=== PATIENT | female | born 1975 | race Asian ===

== ENCOUNTER 2024-01-08 09:58 | Emergency (ER) | payer OTHER, SELFPAY ==
[2024-01-08 10:03] VITALS: BP 114/76
--- NOTE | 2024-01-08 10:22 | ED.GENMED ---
History of Present Illness
General
Chief Complaint: Back Pain
Time Seen by Provider: 01/08/24 10:22
History of Present Illness
History of Present Illness:
48-year-old female with no significant past medical problems presents to the emergency department for evaluation of right-sided low back pain that began after attempting to lift a heavy bag yesterday. Took 800 mg of ibuprofen without relief. Pain
does not radiate down the legs. Denies any loss of bladder or bowel function. No fevers or chills
Past History
Social History
Living: with family
Review of Systems
Review of Systems
Allergies reviewed?: Yes
All Other Systems: ROS reviewed and negative except as documented in HPI and ROS
Phy Exam
Physical Exam
Physical Exam:
GEN: Well appearing, NAD, WDWN
HEENT: Oral mucosa moist, no scleral icterus
Cardiac: Regular rate
Lung: No respiratory distress, no tachypnea
MSK: No gross deformity or injuries. No midline lumbar spine tenderness elicited, mild tenderness elicited to the PSIS as well as the right lumbar paraspinous muscles. Straight leg raise test is negative, normal right hip range of motion with no
elicited pain, right patellar reflex 2+
Skin: Good color, no pallor or jaundice, no rashes
Neuro: AO x3, moves all extremities freely
Psych: Calm, cooperative
Course
Orders/Labs/Results
Orders:
Orders
01/08/24 10:31
Ketorolac [Toradol] 30 mg IM NOW STA
Vital Signs
Initial and Last Documented VS:
Initial Vital Signs
Temp Pulse Resp BP Pulse Ox
98.7 F 93 18 114/76 99
01/08/24 10:03 01/08/24 10:03 01/08/24 10:03 01/08/24 10:03 01/08/24 10:03
Last Documented Vital Signs
Temp Pulse Resp BP Pulse Ox
98.7 F 93 18 114/76 99
01/08/24 10:03 01/08/24 10:03 01/08/24 10:03 01/08/24 10:03 01/08/24 10:03
MDM/Problems Addressed
MDM/Problems Addressed:
Findings consistent with lumbar muscle strain, no radiculopathy concerning for discogenic etiology. Discussed supportive care. Patient has upcoming flight to [place] thus will need adequate medications for travel purposes
*Critical Care Note
Total Time (30-74mins, 75-104mins- exclusive of procedures): Not Applicable
ED Attending Note
-
Portions of this chart may have been created with voice recognition software.� Occasional wrong word or��sound alike� substitutions may have occurred due to the inherent limitations of voice recognition software.
Discharge Plan
Departure
Patient Disposition: Home (Routine Discharge)
Date of Disposition: 01/08/24
Time of Disposition: 10:33
Patient with high blood pressure during this ER visit?: No
Discharge Problem:
Acute lumbar myofascial strain
Instructions: Low Back Pain (DC), Back Exercises
Prescriptions:
New
diclofenac sodium 75 mg tablet,delayed release (DR/EC)
75 mg PO BID Qty: 20 0RF
diazepam 5 mg tablet
5 mg PO TID PRN (Reason: muscle spasm) Qty: 15 0RF
diclofenac sodium 1 % gel
2 g topical QID Qty: 100 0RF
No Action
cefadroxil 500 mg capsule
500 mg PO BID Qty: 20 0RF
Interventions
Interventions:
*Risk Screen - Suicide Last Done: 01/08/24 10:05
*General Assessment Last Done: 01/08/24 10:05
*Neglect/Abuse Screening Last Done: 01/08/24 10:05
*Nursing Disposition Last Done: 01/08/24 11:00
ED-Musculoskeletal Assessment Last Done: 01/08/24 10:45
Discharge Date and Time
Discharge Date/Time: 01/08/24 11:00
Print Language: [id number]
[2024-01-08] MEDS: TORADOL 30 MG IM (10:56)
== END 2024-01-08 11:00 | disposition home or self-care (01) ==
LOC: EMR 09:58
PROVIDERS: EMERGENCY PHYSICIAN Student in an Organized Health Care Education/Training Program; FAMILY PHYSICIAN Internal Medicine
DX: S39.012A Strain of muscle, fascia and tendon of lower back, initial encounter (principal); X50.0XXA Overexertion from strenuous movement or load, initial encounter
CPT/HCPCS: 99284; 96372